=== PATIENT | male | born 1980 | race Caucasian/White ===

== ENCOUNTER 2022-09-27 21:57 | Emergency (ER) | payer OTHER ==
[2022-09-27 22:14] VITALS: BP 117/74; PULSE 100; RESP 17; TEMP 98.8; BMI 30.4
== END 2022-09-27 23:33 | disposition home or self-care (01) ==
LOC: JER 21:57
DX: J09.X2 Influenza due to identified novel influenza A virus with other respiratory manifestations (principal)
CPT/HCPCS: 0241U-QW; 99283-25

== ENCOUNTER 2024-09-01 22:20 | Emergency (ER) | payer OTHER ==
[2024-09-01 22:25] VITALS: BP 115/77; PULSE 108; RESP 17; TEMP 98.4; BMI 26.6
[2024-09-01] MEDS ORDERED: IBUPROFEN 600 MG TABLET (FP) PO ONE (23:21)
[2024-09-01] MEDS: IBUPROFEN 600 MG TABLET (FP) PO ONE (23:22)
[2024-09-01] MEDS ORDERED: MONTELUKAST NA 10 MG TABLET ONE (23:23)
[2024-09-01] MEDS: MONTELUKAST NA 5 MG TAB.CHEW PO ONE (23:24)
== END 2024-09-01 23:40 | disposition home or self-care (01) ==
LOC: JERFT 22:20
DX: J02.9 Acute pharyngitis, unspecified (principal); H66.92 Otitis media, unspecified, left ear; H92.02 Otalgia, left ear; R05.9 Cough, unspecified; Z20.822 Contact with and (suspected) exposure to COVID-19
CPT/HCPCS: 0241U-QW; 99283-25